=== PATIENT | female | born 1980 | race Caucasian/White ===

== ENCOUNTER 2017-11-02 19:25 | Observation (INO) | payer OTHER ==
[2017-11-02] MEDS ORDERED: ONDANSETRON 4 MG/2 ML VIAL IVP ONE ×2 (20:00→21:36)
[2017-11-02] MEDS ORDERED: HYDROmorphONE/DILAUDID 1 MG/ML INJ ONE ×2 (20:06→21:25)
[2017-11-02 20:07] LABS: PLATELET COUNT 422 10^3/uL (150-400)
[2017-11-02] MEDS ORDERED: NS 1,000 ML IV ONE ×3 (20:08→21:13)
[2017-11-02] MEDS ORDERED: HYDROmorphONE/DILAUDID 2 MG/ML INJ IVP ONE ×2 (20:10→21:13)
--- NOTE | 2017-11-02 20:12 | EDPHY ---
H & P Smoking Status: Never smoked <Jesenia Paul - Last Filed: 11/02/17 21:18> <Eulalia San - Last Filed: 11/02/17 23:07> Time Seen by Provider: 11/02/17 20:02 HPI/ROS: CHIEF COMPLAINT: Abdominal pain HISTORY OF PRESENT ILLNESS: Started while walking around 2 hr ago at 6:00 p.m. With generalized abdominal pain now localized to the right lower quadrant. Does not radiate and worse with walking. Associated with nausea but no vomiting or diarrhea. No recent injury or trauma. Has had ovarian cyst before but it was at least 10 years ago and felt a little bit different. No fever or chills. Symptoms moderate to severe. REVIEW OF SYSTEMS: Eye: no change in vision ENT: no sore throat Cardiac: no chest pain or syncope Pulmonary: no cough or SOB Abdomen: HPI Musculoskeletal: no back pain Skin: no rash Neuro: no headache Constitutional: no fever : no urinary symptoms or vaginal bleeding or discharge A comprehensive 10 point review of systems is otherwise negative aside from elements mentioned in the history of present illness. PAST MEDICAL HISTORY: Ovarian cyst Social history: Here with mom and her good friend General Appearance: Alert and conversant, cooperative. Eyes: No scleral icterus. ENT, Mouth: Normal mucous membranes. Respiratory: Normal respiratory effort, breath sounds equal, lungs are clear to auscultation. Cardiovascular: Regular rate and rhythm. Gastrointestinal: Right lower quadrant tenderness but no rebound or guarding. Bowel sounds present. Neurological: Alert, face symmetric, normal motor and sensory in extremities. Skin: Warm and dry, no rashes. Musculoskeletal: No peripheral edema. Psychiatric: Not agitated. Emergency Department course/MDM: Dilaudid 0.5 mg IV and Zofran 4 mg IV. 1000 mL normal saline for nausea, urinalysis and HCG and WBC, ultrasound of the right ovary and appendix discussed and consented. 2100: Free fluid in the right side of the pelvis with an ovarian follicle on the left, good flow to both ovaries, appendix not seen per Dr. Gonzalez 2111: Still having abdominal pain and nausea, will repeat Dilaudid and had 15 mg IV Toradol, CT scanning discussed and consented with continued right lower quadrant tenderness. Signed out to Dr. San with CT scanning to evaluate for appendicitis pending. (Jesenia Paul) Constitutional: Initial Vital Signs Temperature (C) 36.6 C 11/02/17 19:28 Heart Rate 76 11/02/17 19:28 Respiratory Rate 18 11/02/17 19:28 Blood Pressure 131/84 H 11/02/17 19:28 O2 Sat (%) 100 11/02/17 19:28 O2 Delivery Mode Room Air Allergies/Adverse Reactions: droperidol [From Inapsine] Allergy (Verified 11/02/17 21:28) erythromycin base [From Erythrocin] Allergy (Verified 11/02/17 21:28) meloxicam Allergy (Verified 11/02/17 21:28) Home Medications: Medication Instructions Recorded Ethinyl Estradiol/Drospirenone 11/02/17 [Scarlet 28 Tablet] Medical Decision Making <Jesenia Paul - Last Filed: 11/02/17 21:18> - Diagnostics Imaging: Discussed imaging studies w/ cutter operator Radiologist, I viewed and interpreted images myself <Eulalia San - Last Filed: 11/02/17 23:07> - Diagnostics Imaging Results: Imaging Impressions Abdomen Ultrasound 11/02/17 20:08 Impression: 1. Appendix can not be identified. 2. Free fluid in low right pelvis. Findings discussed with Emergency Department physician, JESENIA PAUL at 2017 21:01. Pelvic/Renal Ultrasound 11/02/17 20:08 Impression: 1. Small free fluid in the right adnexa. Query ruptured right ovarian follicle. 2. No evidence of ovarian torsion. Findings discussed with Emergency Department physician, Dr. Jesenia Paul on October at 2101 hours. ED Course/Re-evaluation: I took over care of this patient at 9:00 p.m.. We are awaiting the results of his CT scan of her abdomen and pelvis to evaluate for appendicitis. 10:10 p.m., discussed results of CT abdomen and pelvis with Dr. Ortiz Gonzalez. Please see his report for further details. 10:40 p.m., I evaluated the patient. She had another episode of vomiting. She has had 8 mg total of IV Zofran. She will receive 6.25 mg of IV Phenergan. Results of her CT scan discussed with her. Repeat abdominal exam by myself, she is soft but tender in the right lower quadrant. Dr. Fariha Mueller of general surgery paged to consult. 11:00 p.m., discussed management options with the patient. We will admit this patient to the hospitalist service for observation overnight. Dr. Mueller evaluated the patient in the emergency department. Dr. Mueller agrees with admission for observation overnight. She requested we admit the patient to the hospitalist service for observation. I have discussed her case with Dr. Stokes of the hospitalist service. Dr. Stokes accepts this patient for admission. The patient was admitted in stable condition for observation, IV fluid hydration and antiemetics overnight. (Eulalia San) - Data Points Laboratory Results: Laboratory Results 11/02/17 19:56 11/02/17 19:56 11/02/17 11/02/17 11/02/17 20:50 19:56 19:56 WBC RBC Hgb Hct MCV MCH MCHC RDW Plt Count MPV Neut % (Auto) Lymph % (Auto) [place] % (Auto) Eos % (Auto) Baso % (Auto) Nucleat RBC Rel Count Absolute Neuts (auto) Absolute Lymphs (auto) Absolute Monos (auto) Absolute Eos (auto) Absolute Basos (auto) Absolute Nucleated RBC Immature Gran % Immature Gran # Sodium 140 mEq/L mEq/L (135-145) Potassium 4.3 mEq/L mEq/L (3.3-5.0) Chloride 105 mEq/L mEq/L (97-110) Carbon Dioxide 23 mEq/l mEq/l (22-31) Anion Gap 12 mEq/L mEq/L (8-16) BUN 14 mg/dL mg/dL (7-23) Creatinine 1.0 mg/dL mg/dL (0.6-1.0) Estimated GFR > 60 Glucose 101 mg/dL H mg/dL (70-100) Calcium 10.1 mg/dL mg/dL (8.5-10.4) Beta HCG, Qual NEGATIVE Urine Color KERRY Urine Appearance HAZY Urine pH 5.0 (5.0-7.5) Ur Specific [place] 1.026 (1.002-1.030) Urine Protein NEGATIVE (NEGATIVE) Urine Ketones 1+ H (NEGATIVE) Urine Blood NEGATIVE (NEGATIVE) Urine Nitrate NEGATIVE (NEGATIVE) Urine Bilirubin NEGATIVE (NEGATIVE) Urine Urobilinogen NEGATIVE EU EU (0.2-1.0) Ur Leukocyte Esterase NEGATIVE (NEGATIVE) Urine Glucose NEGATIVE (NEGATIVE) 11/02/17 19:56 WBC 12.58 10^3/uL H 10^3/uL (3.80-9.50) RBC 5.42 10^6/uL H 10^6/uL (4.18-5.33) Hgb 15.1 g/dL g/dL (12.6-16.3) Hct 44.8 % % (38.0-47.0) MCV 82.7 fL fL (81.5-99.8) MCH 27.9 pg pg (27.9-34.1) MCHC 33.7 g/dL g/dL (32.4-36.7) RDW 12.8 % % (11.5-15.2) Plt Count 422 10^3/uL H 10^3/uL (150-400) MPV 9.0 fL fL (8.7-11.7) Neut % (Auto) 72.7 % % (39.3-74.2) Lymph % (Auto) 18.8 % % (15.0-45.0) [place] % (Auto) 7.1 % % (4.5-13.0) Eos % (Auto) 0.8 % % (0.6-7.6) Baso % (Auto) 0.3 % % (0.3-1.7) Nucleat RBC Rel Count 0.0 % % (0.0-0.2) Absolute Neuts (auto) 9.14 10^3/uL H 10^3/uL (1.70-6.50) Absolute Lymphs (auto) 2.37 10^3/uL 10^3/uL (1.00-3.00) Absolute Monos (auto) 0.89 10^3/uL H 10^3/uL (0.30-0.80) Absolute Eos (auto) 0.10 10^3/uL 10^3/uL (0.03-0.40) Absolute Basos (auto) 0.04 10^3/uL 10^3/uL (0.02-0.10) Absolute Nucleated RBC 0.00 10^3/uL 10^3/uL (0-0.01) Immature Gran % 0.3 % % (0.0-1.1) Immature Gran # 0.04 10^3/uL 10^3/uL (0.00-0.10) Sodium Potassium Chloride Carbon Dioxide Anion Gap BUN Creatinine Estimated GFR Glucose Calcium Beta HCG, Qual Urine Color Urine Appearance Urine pH Ur Specific [place] Urine Protein Urine Ketones Urine Blood Urine Nitrate Urine Bilirubin Urine Urobilinogen Ur Leukocyte Esterase Urine Glucose Medications Given: Discontinued Medications Hydromorphone HCl (Dilaudid) 0.5 mg IVP EDNOW ONE Stop: 11/02/17 20:11 Last Admin: 11/02/17 20:11 Dose: 0.5 mg Hydromorphone HCl (Dilaudid) 0.5 mg IVP EDNOW ONE Stop: 11/02/17 21:14 Last Admin: 11/02/17 21:30 Dose: 0.5 mg Sodium Chloride (Ns) 1,000 mls @ 0 mls/hr IV EDNOW ONE; Wide Open PRN Reason: Protocol Stop: 11/02/17 20:09 Last Admin: 11/02/17 20:11 Dose: 1,000 mls Sodium Chloride (Ns) 1,000 mls @ 0 mls/hr IV ONCE ONE PRN Reason: Wide Open Stop: 11/02/17 20:11 Last Admin: 11/02/17 20:12 Dose: Not Given Sodium Chloride (Ns) 1,000 mls @ 0 mls/hr IV EDNOW ONE; Wide Open PRN Reason: Protocol Stop: 11/02/17 21:14 Last Admin: 11/02/17 21:29 Dose: 1,000 mls Ondansetron HCl (Zofran) 4 mg IVP EDNOW ONE Stop: 11/02/17 20:01 Last Admin: 11/02/17 20:05 Dose: 4 mg Ondansetron HCl (Zofran) 4 mg IVP EDNOW ONE Stop: 11/02/17 21:37 Last Admin: 11/02/17 22:04 Dose: 4 mg Promethazine HCl (Phenergan) 6.25 mg IVP EDNOW ONE Stop: 11/02/17 22:41 Last Admin: 11/02/17 22:49 Dose: 6.25 mg Departure <Jesenia Paul - Last Filed: 11/02/17 21:18> <Eulalia San - Last Filed: 11/02/17 23:07> - Departure Disposition: [facility] Inpatient Acute Clinical Impression: Lower abdominal pain, Vomiting Referrals: Kathie Blackwell MD [Primary Care Provider] - As per Instructions
[2017-11-02] MEDS ORDERED: KETOROLAC 30 MG/1 ML SDV IVP ONE (21:13)
[2017-11-02] MEDS ORDERED: IOPAMIDOL (ISOVUE-300) 100 ML BTL ONE (21:45)
[2017-11-02] MEDS ORDERED: PROMETHAZINE HCL 25 MG/ML INJ IVP ONE (22:40)
[2017-11-02] MEDS ORDERED: ONDANSETRON DISINTEGRATING 4 MG TAB PO PRN (23:05)
[2017-11-02] MEDS ORDERED: PROMETHAZINE HCL 25 MG/ML INJ IVP PRN (23:05)
[2017-11-02] MEDS ORDERED: ONDANSETRON 4 MG/2 ML VIAL IVP PRN (23:05)
[2017-11-02] MEDS ORDERED: ACETAMINOPHEN 325 MG TAB PO PRN (23:05)
[2017-11-02] MEDS ORDERED: D5W 1/2 NS 1,000 ML IV SCH (23:15)
--- NOTE | 2017-11-02 23:40 | GCON ---
[f rep st] CONSULTATION Date of Consultation 11/01/2017 Chief Complaint: Abdominal Pain Cely is a 37 year old woman who attended [facility] this weekend. She developed abdominal pain starting around 3 o'clock this afternoon. It escalated at 6 o' clock, associated with nausea and vomiting. She presented to the ER and she had a CT scan performed of her abdomen and pelvis that showed enteritis. Her appendix was visualized and normal caliber and diameter and with some mild inflammatory changes near it. She was unable to eat dinner because she felt sick to her stomach. She had a looser bowel movement yesterday which is not out of the ordinary for her. She ate the same things as her friend with the exception of a lemonade. No sick contacts. She has never had this pain before. PAST MEDICAL HISTORY: Includes a ruptured ovarian cyst. PAST SURGICAL HISTORY: Other orthopedic surgery. 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 FAMILY HISTORY: No inflammatory bowel disease. REVIEW OF SYSTEMS: A 10-point review of systems otherwise negative except per HPI. PHYSICAL EXAM: VITALS: Reviewed. GENERAL: Pleasant, well-nourished, well- groomed woman lying on bed. HEENT: Normocephalic. No gross hearing deficits. Mucous membranes moist. Pupils equal and round. No scleral icterus. LUNGS: Clear to auscultation bilaterally. No increased work of breathing. CARDIAC: Regular rate. ABDOMEN: Bowel sounds are present. She is soft and nontender in the upper quadrant. She is tender in both the lower quadrants more prominently in the right lower quadrant. SKIN: Warm and dry. MUSCULOSKELETAL : Normal nails. PSYCH: Mood and affect normal. NEURO: Grossly intact. RESULTS REVIEWED: I personally reviewed the results of her CT scan and can see the inflammation of her ileum. I could also visualize her appendix. I do not see free fluid. IMPRESSION PLAN: The patient is a 37-year-old woman with enteritis. It is unclear source whether this represents bacterial, viral, or an underlying first presentation of an inflammatory bowel disorder. I do not think that the appendix caused the regional enteritis. It is more likely the regional enteritis caused inflammation surrounding the appendix. I recommend that she be observed overnight. I will see her again in the morning. Stool study. May need colonoscopy as outpatient. /[id number]/MODL MTDD
--- NOTE | 2017-11-03 00:22 | PDGENHP ---
History and Physical - Chief Complaint RLQ pain - History of Present Illness 37 yo F w/ no PMHx presents with RLQ and vomiting. Patient first noticed crampy RLQ pain this afternoon. This was followed by onset of non-bloody vomiting. She denies diarrhea. Symptoms progressed throughout the day so she presented to ED. She denies recent antibiotics, sick contacts, or consumption of suspicious foods. At the time of my evaluation patients are somewhat improved after IVF and pain/nausea medication. CT shows enteritis surrounding appendix but no clear appendicitis. History Information - Allergies/Home Medication List Allergies/Adverse Reactions: droperidol [From Inapsine] Allergy (Verified 11/02/17 21:28) erythromycin base [From Erythrocin] Allergy (Verified 11/02/17 21:28) meloxicam Allergy (Verified 11/02/17 21:28) Home Medications: Ethinyl Estradiol/Drospirenone [Scarlet 28 Tablet] 11/02/17 [Last Taken Unknown] I have personally reviewed and updated: family history, medical history - Past Medical History no pertinent PMH - Surgical History Additional surgical history: Knee and ankle surgery - Family History Positive for: diabetes type II, CAD - Social History Smoking Status: Never smoked Review of Systems Review of Systems: ROS: 10pt was reviewed & negative except for what was stated in HPI & below Physical Exam Physical Exam: Temp Pulse Resp BP Pulse Ox 36.9 C 69 16 110/55 L 96 11/02/17 23:53 11/02/17 23:53 11/02/17 23:53 11/02/17 23:53 11/02/17 23:53 Constitutional: appears nourished, uncomfortable Eyes: PERRL, EOMI Ears, Nose, Mouth, Throat: moist mucous membranes, no oral mucosal ulcers Cardiovascular: regular rate and rhythym, no murmur, rub, or gallop Respiratory: no respiratory distress, clear to auscultation Gastrointestinal: normoactive bowel sounds, tenderness (RLQ), No guarding, No rebound, No distension Skin: warm, normal color Musculoskeletal: full muscle strength, no muscle tenderness Neurologic: AAOx3, CN II-XII Intact Psychiatric: interacting appropriately, not anxious Lab Data & Imaging Review 11/02/17 19:56 11/02/17 19:56 WBC 12.58 10^3/uL (3.80-9.50) H 11/02/17 19:56 RBC 5.42 10^6/uL (4.18-5.33) H 11/02/17 19:56 Hgb 15.1 g/dL (12.6-16.3) 11/02/17 19:56 Hct 44.8 % (38.0-47.0) 11/02/17 19:56 MCV 82.7 fL (81.5-99.8) 11/02/17 19:56 MCH 27.9 pg (27.9-34.1) 11/02/17 19:56 MCHC 33.7 g/dL (32.4-36.7) 11/02/17 19:56 RDW 12.8 % (11.5-15.2) 11/02/17 19:56 Plt Count 422 10^3/uL (150-400) H 11/02/17 19:56 MPV 9.0 fL (8.7-11.7) 11/02/17 19:56 Neut % (Auto) 72.7 % (39.3-74.2) 11/02/17 19:56 Lymph % (Auto) 18.8 % (15.0-45.0) 11/02/17 19:56 [place] % (Auto) 7.1 % (4.5-13.0) 11/02/17 19:56 Eos % (Auto) 0.8 % (0.6-7.6) 11/02/17 19:56 Baso % (Auto) 0.3 % (0.3-1.7) 11/02/17 19:56 Nucleat RBC Rel Count 0.0 % (0.0-0.2) 11/02/17 19:56 Absolute Neuts (auto) 9.14 10^3/uL (1.70-6.50) H 11/02/17 19:56 Absolute Lymphs (auto) 2.37 10^3/uL (1.00-3.00) 11/02/17 19:56 Absolute Monos (auto) 0.89 10^3/uL (0.30-0.80) H 11/02/17 19:56 Absolute Eos (auto) 0.10 10^3/uL (0.03-0.40) 11/02/17 19:56 Absolute Basos (auto) 0.04 10^3/uL (0.02-0.10) 11/02/17 19:56 Absolute Nucleated RBC 0.00 10^3/uL (0-0.01) 11/02/17 19:56 Immature Gran % 0.3 % (0.0-1.1) 11/02/17 19:56 Immature Gran # 0.04 10^3/uL (0.00-0.10) 11/02/17 19:56 Sodium 140 mEq/L (135-145) 11/02/17 19:56 Potassium 4.3 mEq/L (3.3-5.0) 11/02/17 19:56 Chloride 105 mEq/L (97-110) 11/02/17 19:56 Carbon Dioxide 23 mEq/l (22-31) 11/02/17 19:56 Anion Gap 12 mEq/L (8-16) 11/02/17 19:56 BUN 14 mg/dL (7-23) 11/02/17 19:56 Creatinine 1.0 mg/dL (0.6-1.0) 11/02/17 19:56 Estimated GFR > 60 11/02/17 19:56 Glucose 101 mg/dL (70-100) H 11/02/17 19:56 Calcium 10.1 mg/dL (8.5-10.4) 11/02/17 19:56 Total Bilirubin 0.5 mg/dL (0.1-1.4) 11/02/17 19:56 Conjugated Bilirubin 0.5 mg/dL (0.0-0.5) 11/02/17 19:56 Unconjugated Bilirubin 0.0 mg/dL (0.0-1.1) 11/02/17 19:56 AST 23 IU/L (14-46) 11/02/17 19:56 ALT 41 IU/L (9-52) 11/02/17 19:56 Alkaline Phosphatase 66 IU/L (38-126) 11/02/17 19:56 Total Protein 7.4 g/dL (6.3-8.2) 11/02/17 19:56 Albumin 4.3 g/dL (3.5-5.0) 11/02/17 19:56 Beta HCG, Qual NEGATIVE 11/02/17 19:56 Urine Color KERRY 11/02/17 20:50 Urine Appearance HAZY 11/02/17 20:50 Urine pH 5.0 (5.0-7.5) 11/02/17 20:50 Ur Specific [place] 1.026 (1.002-1.030) 11/02/17 20:50 Urine Protein NEGATIVE (NEGATIVE) 11/02/17 20:50 Urine Ketones 1+ (NEGATIVE) H 11/02/17 20:50 Urine Blood NEGATIVE (NEGATIVE) 11/02/17 20:50 Urine Nitrate NEGATIVE (NEGATIVE) 11/02/17 20:50 Urine Bilirubin NEGATIVE (NEGATIVE) 11/02/17 20:50 Urine Urobilinogen NEGATIVE EU (0.2-1.0) 11/02/17 20:50 Ur Leukocyte Esterase NEGATIVE (NEGATIVE) 11/02/17 20:50 Urine Glucose NEGATIVE (NEGATIVE) 11/02/17 20:50 Imaging Review: Imaging Impressions Abdomen Ultrasound 11/02/17 20:08 Impression: 1. Appendix can not be identified. 2. Free fluid in low right pelvis. Findings discussed with Emergency Department physician, JESENIA PAUL at 2017 21:01. Pelvic/Renal Ultrasound 11/02/17 20:08 Impression: 1. Small free fluid in the right adnexa. Query ruptured right ovarian follicle. 2. No evidence of ovarian torsion. Findings discussed with Emergency Department physician, Dr. Jesenia Paul on October at 2101 hours. Assessment & Plan Assessment: 37 yo F p/w enteritis of distal ileum of uncertain etiology. Plan: 1. Enteritis - Presenting w/ RLQ pain and vomiting. Some concern for appendiceal involvement but this seems less likely per radiology and conversation with Dr. Mueller from surgery service. Infectious etiologies vs. new onset IBD on the differential. - Admit for observation - GI PCR ordered - Clears, mIVF, pain control, anti-emetics PRN - Surgery service following, appreciate assistance 2. Leukocytosis - Presumably 2/2 above; UA unremarkable. - Monitor CBC Diet - Clears, ADAT Code - Full Ppx - Low risk Dispo - Admit under observation status, discussed case with Dr. Singh and Dr. Mueller
[2017-11-03 04:37] LABS: PLATELET COUNT 343 10^3/uL (150-400)
--- NOTE | 2017-11-03 07:59 | SOAPPROG ---
SOAP Progress Note Assessment/Plan: 11/03/17 07:52 PAD#1 Assessment: Feels better but not hungry nor has she passed stool. Mild RLQ tenderness with cough, rare bowel sounds, Mild RLQ tenderness to palpation. Afebrile WBC improved but left shift remains Non surgical abdomen Plan: Evaluate stool for enteric pathogens as planned Consider follow up colonoscopy in 6-8 weeks to rule out regional enteritis Nothing further to add. Will sign off Please re-consult if needed. Subjective: I'm not hungry. Although I had a small amount of diarrhea with undigested food particles yesterday, I have not had a bowel movement since admission Objective: Vital Signs Temp Pulse Resp BP Pulse Ox 37.0 C 68 12 100/56 L 97 11/03/17 04:38 11/03/17 04:38 11/03/17 04:38 11/03/17 04:38 11/03/17 04:38 Laboratory Results 11/03/17 04:08 11/03/17 04:08 11/02/17 11/03/17 11/04/17 05:59 05:59 05:59 Intake Total 1777 Balance 1777 - Time Spent With Patient Time Spent With Patient: 15 Physical Exam - Physical Exam General Appearance: WD/WN, alert, no apparent distress Abdomen: non-tender, soft, other (no significant bowel sounds, mildly tender with cough in right lower quadrant ) Pelvic Exam: deferred Rectal: deferred ICD10 Worksheet Patient Problems: Problems Problem Status Onset Lower abdominal pain Acute Vomiting Acute
[2017-11-03 08:31] VITALS: BP 91/55
--- NOTE | 2017-11-03 13:56 | PDDCSUM ---
Discharge Summary Discharge Summary: Date of Admission: November 02, 2017 Date of Discharge: November 03, 2017 Discharge Diagnoses: Acute gastroenteritis and colitis, improved Acute dehydration, resolved Abdominal pain, improved Admission Diagnoses: Acute enteritis Leukocytosis Consultants: General surgery-Dr. Mueller [facility] Course: The patient is a 37-year-old female with no past medical history who presented to the ED with right lower quadrant abdominal pain, nausea, and nonbloody vomiting. Symptoms started in the afternoon. She had some limited diarrhea in the emergency department. CT scan of the abdomen showed enteritis around the appendix, but no clear appendicitis. General surgeon was consulted and looked at the CT scan and confirmed that there was no appendicitis. Patient also had some free fluid in the area of right pelvis which might have been associated with a ruptured cyst of the ovary. Patient was feeling much better the next day. She did not have any bowel movements so was unable to provide a stool specimen. She was discharged home in stable condition with instructions to stay well hydrated. Physical Exam: General: The patient is a female female who is alert and in no acute distress. HEENT: normocephalic, extraocular movements intact, conjunctivae clear, no lesions on face. Mucous membranes moist. Neck: trachea midline, no visible masses, no external lesions. Abd: soft and nondistended. Mild tenderness throughout. Musculoskeletal: Normal muscle tone and bulk Neuro: cranial nerves II XII grossly intact. Psych: appropriate mood/affect. Skin: No pallor. Condition: Stable. Discharged to: Home. Pertinent tests/labs/imaging: Abdomen ultrasound: free fluid in right pelvis. Pelvic/renal ultrasound-small free fluid in right adnexa. Query ruptured right ovarian follicle. No evidence of ovarian torsion. CT abdomen/pelvis: Enteritis primarily involving distal ileum in right lower quadrant with regional inflammation throughout mesenteric fat. Minimal inflammation of appendix likely secondary to small bowel inflammation. WBC count: 12.6, 10.3. Medications: Please see med rec form. Giving patient sublingual Zofran 4 mg to take as needed every 8 hr. Special instructions: Stay well hydrated, may add electrolyte tablets to water. Advance diet as tolerated from clear liquids and BRAT diet. May apply heat as needed to abdomen to help with cramping. Follow up: Follow up with PCP in 1 week. Less than 30 minutes of total time was spent on counseling and coordination of care for this patient's discharge.
== END 2017-11-03 14:20 | disposition home or self-care (01) ==
LOC: F1N 23:42
PROVIDERS: ADMIT Student in an Organized Health Care Education/Training Program; ATTEND Student in an Organized Health Care Education/Training Program
DX: K52.9 Noninfective gastroenteritis and colitis, unspecified (principal); R11.2 Nausea with vomiting, unspecified; D72.829 Elevated white blood cell count, unspecified; E86.0 Dehydration
CPT/HCPCS: 74177; 76705; 76856; 96361; 96374; 96375; 96376; 99285; G0378; J1170; J1885; J2405; J2550; Q9967